=== PATIENT | female | born 1990 | race Two or more races ===

== ENCOUNTER 2016-08-10 19:45 | Observation (INO) | payer SELFPAY ==
[2016-08-10] MEDS ORDERED: ASPIRIN 81 MG TABLET, CHEWABLE PO ONE (20:17)
--- NOTE | 2016-08-10 20:18 | ER Document Report ---
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 chest pain substernal area without radiation denies recent travel, BC, surgery, tobacco use denies fever, cough BS CTAB and nl S1S2, tender to palpation I have greeted and performed a rapid initial assessment of this patient. A comprehensive ED assessment and evaluation of the patient, analysis of test results and completion of the medical decision making process will be conducted by additional ED providers. Physical Exam - Vital signs Vitals: Temp Pulse Resp BP Pulse Ox 98.0 F 78 18 133/68 H 100 08/10/16 20:05 08/10/16 20:05 08/10/16 20:05 08/10/16 20:05 08/10/16 20:05 Course - Vital Signs Vital signs: Temp Pulse Resp BP Pulse Ox 98.0 F 78 18 133/68 H 100 08/10/16 20:05 08/10/16 20:05 08/10/16 20:05 08/10/16 20:05 08/10/16 20:05
[2016-08-10 20:53] LABS: ABSOLUTE LYMPHOCYTES (AUTO) 1.5 10^3/uL (0.5-4.7); ABSOLUTE MONOCYTES (AUTO) 0.4 10^3/uL (0.1-1.4); ABSOLUTE NEUT (AUTO) 8.7 10^3/uL (1.7-8.2); BASOPHILS % (AUTO) 0.2 % (0-2); EOSINOPHILS % (AUTO) 0.3 % (0-6); HEMATOCRIT 37.3 % (36.0-47.0); HEMOGLOBIN 12.9 g/dL (12.0-15.5); HGB HCT DIFFERENCE 1.4; MEAN CORPUSCULAR HEMOGLOBIN 31.6 pg (27.0-33.4); MEAN CORPUSCULAR HGB CONC 34.6 g/dL (32.0-36.0); MEAN CORPUSCULAR VOLUME 91 fl (80-97); MONOCYTES % (AUTO) 3.8 % (3-13); RED BLOOD COUNT 4.09 10^6/uL (3.72-5.28); RED CELL DISTRIBUTION WIDTH 12.8 % (11.5-14.0); SEGMENTED NEUTROPHILS % (AUTO) 81.7 % (42-78); WHITE BLOOD COUNT 10.6 10^3/uL (4.0-10.5)
[2016-08-10 21:11] LABS: ALANINE AMINOTRANSFERASE 25 U/L (9-52); ALBUMIN 5.2 g/dL (3.5-5.0); ALKALINE PHOSPHATASE 94 U/L (38-126); ANION GAP 16 (5-19); ASPARTATE AMINO TRANSFERASE 23 U/L (14-36); BILIRUBIN,TOTAL 0.5 mg/dL (0.2-1.3); BLOOD UREA NITROGEN 14 mg/dL (7-20); CALCIUM 10.2 mg/dL (8.4-10.2); CARBON DIOXIDE 23 mmol/L (22-30); CHLORIDE 103 mmol/L (98-107); CREATINE KINASE 86 U/L (30-135); CREATININE RESULT 0.61 mg/dL (0.52-1.25); GLUCOSE 108 mg/dL (75-110); POTASSIUM 3.6 mmol/L (3.6-5.0); SODIUM 141.6 mmol/L (137-145); TOTAL PROTEIN 8.3 g/dL (6.3-8.2)
--- NOTE | 2016-08-10 21:47 | EKG REPORT ---
SEVERITY:- ABNORMAL ECG - SINUS RHYTHM VENTRICULAR BIGEMINY CONSIDER RIGHT VENTRICULAR HYPERTROPHY BORDERLINE PROLONGED QT INTERVAL : Confirmed by: Patrick Roldan 10-Aug-2016 21:47:03
--- NOTE | 2016-08-10 23:42 | ER Document Report ---
ED General - General Chief Complaint: Chest Pain Stated Complaint: CHEST PAIN Notes: Patient is a 25-year-old female who presents with complaint of an episode where she had chest pain. All history is obtained using [employer] mgr ID # [id number]. Patient says that she was at work. 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 She said she had not been at work but the few hours. She is not exerting herself. She has some onset of chest pain left side felt diaphoretic and felt as if she was about to pass out. She said symptoms lasted approximately an hour and a half. She then came to the ER. She said she had similar symptoms one time many years ago. She never saw a physician or follow- up in regards to her symptoms prior to this. She denies family history of sudden cardiac . She denies history of passing out or chest pain during a sporting event. She is on no medications is otherwise healthy. No drug abuse. Last was 5 years ago. TRAVEL OUTSIDE OF THE [place] IN LAST 30 DAYS: No - Related Data Allergies/Adverse Reactions: No Known Allergies Allergy (Unverified 08/11/16 02:17) Home Medications: Current Home Medications No Home Medications 08/11/16 [History] Past Medical History - Social History Smoking Status: Never Smoker Chew tobacco use (# tins/day): No Frequency of alcohol use: None Drug Abuse: None Family History: Reviewed & Not Pertinent Patient has suicidal ideation: No Patient has homicidal ideation: No Renal/ Medical History: Denies: Hx Peritoneal Dialysis Review of Systems - Review of Systems Notes: My Normal Review Basic REVIEW OF SYSTEMS: CONSTITUTIONAL : Denies fever, chills, or sweats. Denies recent illness. EENT: Denies eye, ear, throat, or mouth pain or symptoms. Denies nasal or sinus congestion. CARDIOVASCULAR: Had chest pain RESPIRATORY: Denies cough, cold, or chest congestion. Denies shortness of breath, difficulty breathing, or wheezing. GASTROINTESTINAL: Denies abdominal pain. Denies nausea, vomiting, or diarrhea. Denies constipation. Last BM: MUSCULOSKELETAL: Denies neck or back pain or joint pain or swelling. SKIN: Denies rash or skin lesions. NEUROLOGICAL: Dizziness and near syncopal episode. ALL OTHER SYSTEMS REVIEWED AND NEGATIVE. Physical Exam - Vital signs Vitals: Temp Pulse Resp BP Pulse Ox 98.0 F 78 18 133/68 H 100 08/10/16 20:05 08/10/16 20:05 08/10/16 20:05 08/10/16 20:05 08/10/16 20:05 - Notes Notes: General Appearance: Well nourished, alert, cooperative, no acute distress, no obvious discomfort. Well-appearing. Vitals: reviewed, See vital signs table. Head: no swelling or tenderness to the head Eyes: PERRL, EOMI, Conjuctiva clear Mouth: No decreasd moisture Neck: Supple, no neck tenderness, No thyromegaly Lungs: No wheezing, No rales, No rhonci, No accessory muscle use, good air exchange bilaterally. Heart: Normal rate, Regular rythm, No murmur, no rub. No murmur with Valsalva. Abdomen: Normal BS, soft, No rigidity, No abdominal tenderness, No guarding, no rebound, no abdominal masses, no organomegaly Extremities: strength 5/5 in all extremities, good pulses in all extremities, no swelling or tenderness in the extremities, no edema. Skin: warm, dry, appropriate color, no rash Neuro: speech clear, oriented x 3, normal affect, responds appropriately to questions. Course - Re-evaluation Re-evalutation: 08/11/16 01:34 We will perform a CT angiogram of the chest to rule out coronary embolism. I explained the procedure to the patient using [employer] systems engineer ID number [id number]. She denies history of iodine allergy or shellfish allergy. She is agreeable to test. - Vital Signs Vital signs: Temp Pulse Resp BP Pulse Ox 97.4 F 65 16 104/65 100 08/11/16 06:12 08/11/16 06:12 08/11/16 06:12 08/11/16 06:12 08/11/16 06:12 - Laboratory Result Diagrams: 08/10/16 20:41 08/10/16 20:41 Laboratory results interpreted by me: 08/10/16 08/10/16 20:41 20:41 WBC 10.6 H Seg Neutrophils % 81.7 H Absolute Neutrophils 8.7 H Total Protein 8.3 H Albumin 5.2 H - EKG Interpretation by Me Additional EKG results interpreted by me: 08/10/16 23:42 EKG is reviewed and interpreted by me. EKG shows sinus rhythm with rate of 94 bpm. Frequent PVCs. LA level, QRS duration are within normal range. QTc interval is prolonged. No ST segment elevation or depression. No old EKG available for comparison. 08/10/16 23:42 - Transfer of Care Notes: 08/11/16 06:43 My concern is the patient's multiple PVCs on her EKG as well as the findings of chest pain with a simple episode that lasted close to an hour and a half. Refilled it's important that she is admitted for evaluation possible echocardiogram. I did explain this to the patient using [employer] systems engineer service #[id number]. Patient is agreeable plan will be admitted. I did speak with the hospitalist who agrees to admit the patient. Dictation of this chart was performed using voice recognition software; therefore, there may be some unintended grammatical errors. Discharge - Discharge Clinical Impression: Near syncope, Frequent PVCs Chest pain Qualifiers: Chest pain type: unspecified Qualified Code(s): R07.9 - Chest pain, unspecified Condition: Stable Disposition: ADMITTED OBSERVATION Admitting Provider: Hospitalist Unit Admitted: Telemetry
[2016-08-11] MEDS ORDERED: NORMAL SALINE 1000 ML 1,000 ML IV ONE ×2 (01:24→04:14)
[2016-08-11 03:22] LABS: MAGNESIUM 1.7 mg/dL (1.6-2.3)
[2016-08-11 03:36] LABS: CREATINE KINASE MB 0.49 ng/mL (<4.55)
[2016-08-11 03:38] LABS: TROPONIN I < 0.012 ng/mL
[2016-08-11] MEDS ORDERED: LACTULOSE SYRUP 20 GM/30 ML UDCUP PO ONE (04:10)
[2016-08-11] MEDS ORDERED: MAG HYDROX/AL HYDROX/SIMETH SUSP 30 ML UDCUP PO PRN (04:10)
[2016-08-11 05:24] LABS: TROPONIN I < 0.012 ng/mL
--- NOTE | 2016-08-11 07:38 | PDOC H&P ---
History of Present Illness Admission Date/PCP: 08/11/16 04:10 Patient complains of: Palpitations and chest pain History of Present Illness: PRATIBHA HARMAN is a 25 year old female who is Sammarinese-speaking only who has a history of remote preeclampsia who had been her usual state of health until approximately 2 months ago having episodes of brief palpitations which results spontaneously however had a episode 2 hours prior to presentation of palpitations with chest pain and shortness of breath lasting approximately 30 minutes prompting to seek evaluation emergency room where she's found to have an EKG with 3 PVCs and an otherwise unremarkable workup. She denies anxiety, heat or cold intolerance, new medications, new foods or allergies. Past Medical History Medical History: None Social History Information Source: Patient Lives with: Family Smoking Status: Never Smoker Frequency of Alcohol Use: None Drugs: None Hx Prescription Drug Abuse: No - Advance Directive Resuscitation Status: Full Code Family History Family History: Hypertension, Other - Diverticulitis Parental Family History Reviewed: Yes Children Family History Reviewed: Yes Sibling(s) Family History Reviewed.: Yes Medication/Allergy Home Medications: No Home Medications 08/11/16 Allergies/Adverse Reactions: No Known Allergies Allergy (Unverified 08/11/16 02:17) Review of Systems Constitutional: ABSENT: chills, fever(s), headache(s), weight gain, weight loss Eyes: ABSENT: visual disturbances Ears: ABSENT: hearing changes Cardiovascular: ABSENT: chest pain, dyspnea on exertion, edema, orthropnea, palpitations Respiratory: ABSENT: cough, hemoptysis Gastrointestinal: ABSENT: abdominal pain, constipation, diarrhea, hematemesis, hematochezia, nausea, vomiting Genitourinary: ABSENT: dysuria, hematuria Musculoskeletal: ABSENT: joint swelling Integumentary: ABSENT: rash, wounds Neurological: ABSENT: abnormal gait, abnormal speech, confusion, dizziness, focal weakness, syncope Psychiatric: ABSENT: anxiety, depression, homidical ideation, suicidal ideation Endocrine: ABSENT: cold intolerance, heat intolerance, polydipsia, polyuria Hematologic/Lymphatic: ABSENT: easy bleeding, easy bruising Physical Exam Vital Signs: Temp Pulse Resp BP Pulse Ox 97.4 F 65 16 104/65 100 08/11/16 07:25 08/11/16 07:25 08/11/16 07:25 08/11/16 07:25 08/11/16 07:25 General appearance: PRESENT: no acute distress, well-developed, well-nourished Head exam: PRESENT: atraumatic, normocephalic Eye exam: PRESENT: conjunctiva pink, EOMI, PERRLA. ABSENT: scleral icterus Ear exam: PRESENT: normal external ear exam Mouth exam: PRESENT: moist, tongue midline Neck exam: ABSENT: carotid bruit, JVD, lymphadenopathy, thyromegaly Respiratory exam: PRESENT: clear to auscultation chalo. ABSENT: rales, rhonchi, wheezes Cardiovascular exam: PRESENT: RRR. ABSENT: diastolic murmur, rubs, systolic murmur Pulses: PRESENT: normal dorsalis pedis pul Vascular exam: PRESENT: normal capillary refill GI/Abdominal exam: PRESENT: normal bowel sounds, soft. ABSENT: distended, guarding, mass, organolmegaly, rebound, tenderness Rectal exam: PRESENT: deferred Extremities exam: PRESENT: full ROM. ABSENT: calf tenderness, clubbing, pedal edema Neurological exam: PRESENT: alert, awake, oriented to person, oriented to place , oriented to time, oriented to situation, CN II-XII grossly intact. ABSENT: motor sensory deficit Psychiatric exam: PRESENT: appropriate affect, normal mood. ABSENT: homicidal ideation, suicidal ideation Skin exam: PRESENT: dry, intact, warm. ABSENT: cyanosis, rash Results Impressions: Chest X-Ray 08/10/16 20:17 IMPRESSION: NO SIGNIFICANT RADIOGRAPHIC FINDING IN THE CHEST. Chest/Abdomen CTA 08/11/16 01:24 IMPRESSION: NORMAL CTA OF THE CHEST. NO PULMONARY EMBOLI. Assessment & Plan - Diagnosis (1) SVT (supraventricular tachycardia) Is this a current diagnosis for this admission?: YesPlan: I believe her history strongly suggest SVT will monitor her for an event obtain orthostatic blood pressures and 2-D echo (2) Chest pain Qualifiers: Chest pain type: unspecified Qualified Code(s): R07.9 - Chest pain, unspecified Is this a current diagnosis for this admission?: YesPlan: Most likely secondary to SVT, differential includes myocarditis I'll obtain serial cardiac enzymes (3) Frequent PVCs Is this a current diagnosis for this admission?: YesPlan: Please see #1 (4) Near syncope Is this a current diagnosis for this admission?: YesPlan: Please #1 consider cardiology consultation - Time Time Spent: 30 to 50 Minutes
[2016-08-11 08:31] LABS: URINE BARBITURATES SCREEN NEGATIVE; URINE METHADONE SCREEN NEGATIVE; URINE OPIATES LOW NEGATIVE; URINE PHENCYCLIDINE SCREEN NEGATIVE
[2016-08-11 10:09] LABS: CREATINE KINASE MB 0.51 ng/mL (<4.55)
[2016-08-11 10:14] LABS: TROPONIN I < 0.012 ng/mL
[2016-08-11] MEDS ORDERED: INFLUENZA ADLT QUAD (36MOS+) 2016-17 VAC 0.5 ML SYR IM PRN (10:41)
[2016-08-11 15:48] LABS: CREATINE KINASE MB 0.33 ng/mL (<4.55)
[2016-08-11 15:54] LABS: TROPONIN I < 0.012 ng/mL
[2016-08-11 16:21] VITALS: BP 100/55
--- NOTE | 2016-08-11 17:01 | PDOC DISCHARGE SUMMARY ---
General - Admit/Disc Date/PCP Admission Date/Primary Care Provider: 08/11/16 04:10 Discharge Date: 08/11/16 - Discharge Diagnosis (1) Chest pain Is this a current diagnosis for this admission?: YesSummary: Ruled out for acute coronary syndrome, most likely anxiety (2) Frequent PVCs Is this a current diagnosis for this admission?: YesSummary: She has had no PVCs on telemetry (3) SVT (supraventricular tachycardia) Is this a current diagnosis for this admission?: Yes - Additional Information Resuscitation Status: Full Code Discharge Diet: Regular Discharge Activity: Activity As Tolerated Home Medications: No Home Medications 08/11/16 History of Present Illness Patient complains of: Palpitations History of Present Illness: PRATIBHA HARMAN is a 25 year old female who presented with complaints of palpitations that occurred 30 minutes prior to her arrival . She has no previous medical history. She denies anxiety but appears anxious. She is accompanied by her boyfriend. She speaks no Bulgarian, Teresa director of financial reporting is being used. She denies any other symptoms. She denies illicit drug use or stimulants. She was referred to the hospitalist for admission. Hospital Course Hospital Course: Patient presented to [facility] with complaints of palpitations and chest heaviness that occurred 30 minutes prior to her arrival. She had similar episodes over the last 2 months. She appears anxious but denies it. She is Turkish and speaks no Bulgarian. Teresa director of financial reporting is being used. She was noted to have 3 PVCs on ECG. She was therefore referred to the Hospitalist service for admission. Physical Exam Vital Signs: Temp Pulse Resp BP Pulse Ox 97.8 F 83 16 100/55 L 99 08/11/16 16:18 08/11/16 16:18 08/11/16 16:18 08/11/16 16:18 08/11/16 16:18 Intake & Output 08/10/16 08/11/16 08/12/16 06:59 06:59 06:59 Weight 59.5 kg General appearance: PRESENT: no acute distress, well-developed, well-nourished Head exam: PRESENT: atraumatic, normocephalic Eye exam: PRESENT: conjunctiva pink, EOMI, PERRLA. ABSENT: scleral icterus Ear exam: PRESENT: normal external ear exam Mouth exam: PRESENT: moist, tongue midline Neck exam: ABSENT: carotid bruit, JVD, lymphadenopathy, thyromegaly Respiratory exam: PRESENT: clear to auscultation chalo. ABSENT: rales, rhonchi, wheezes Cardiovascular exam: PRESENT: RRR. ABSENT: diastolic murmur, rubs, systolic murmur Pulses: PRESENT: normal dorsalis pedis pul Vascular exam: PRESENT: normal capillary refill GI/Abdominal exam: PRESENT: normal bowel sounds, soft. ABSENT: distended, guarding, mass, organolmegaly, rebound, tenderness Rectal exam: PRESENT: deferred Extremities exam: PRESENT: full ROM. ABSENT: calf tenderness, clubbing, pedal edema Neurological exam: PRESENT: alert, awake, oriented to person, oriented to place , oriented to time, oriented to situation, CN II-XII grossly intact. ABSENT: motor sensory deficit Psychiatric exam: PRESENT: appropriate affect, normal mood. ABSENT: homicidal ideation, suicidal ideation Skin exam: PRESENT: dry, intact, warm. ABSENT: cyanosis, rash Results Laboratory Results: 08/11/16 08/11/16 09:31 14:41 CK-MB (CK-2) 0.51 0.33 Troponin I < 0.012 < 0.012 Impressions: Chest X-Ray 08/10/16 20:17 IMPRESSION: NO SIGNIFICANT RADIOGRAPHIC FINDING IN THE CHEST. Chest/Abdomen CTA 08/11/16 01:24 IMPRESSION: NORMAL CTA OF THE CHEST. NO PULMONARY EMBOLI. Qualifiers PATEINT BEING DISCHARGED WITH ANY OF THE FOLLOWING DIAGNOSIS?: No Plan Discharge Plan: Discharge home with significant other Time Spent: Less than 30 Minutes
[2016-08-11] MEDS ORDERED: MAGNESIUM OXIDE 400 MG TABLET PO SCH (18:00)
== END 2016-08-11 17:15 | disposition home or self-care (01) ==
LOC: ER 19:45 → EH 08-11 04:10 → 4S 08-11 09:01
PROVIDERS: ADMIT Internal Medicine; ATTEND Internal Medicine
PROC: 3E0234Z Introduction of Serum, Toxoid and Vaccine into Muscle, Percutaneous Approach (ICD-10-PCS; principal; 2016-08-11)
DX: R07.9 Chest pain, unspecified (principal); I49.3 Ventricular premature depolarization; I47.1 Supraventricular tachycardia; Z82.49 Family history of ischemic heart disease and other diseases of the circulatory system; Z23 Encounter for immunization
CPT/HCPCS: 93005; 99285; 96360; 36415 ×2; 82553; 82550 ×2; 83735; 84443; 84703; 85025; 80053; 84484; 80307; 71020; 71275; 90686; 93010; 90471; G0378 ×2; J7030